=== PATIENT | male | born 1995 | race Caucasian/White ===

== ENCOUNTER 2023-03-24 16:00 | Emergency (ER) | payer SELFPAY ==
[~2023-03-24] VITALS: Ht 165.1 cm; Wt 62.6 kg
[2023-03-24 16:13] VITALS: BP 149/86
--- NOTE | 2023-03-24 16:22 | NUR ---
patient ambulated to bed 8.
[2023-03-24] MEDS ORDERED: BACITRACIN OINT 500 UNITS/GM PKT TP ONE (16:40)
[2023-03-24] MEDS ORDERED: LIDOCAINE/EPI 2% 1:100000 20 ML VIAL INJ ONE (16:40)
--- NOTE | 2023-03-24 18:17 | NUR ---
28 Y/O MALE BIB SELF, PT PRESENTS TO ED WITH LOC TO LEFT ARM S/P WORK INJURY THIS AFTERNOON. PT STATES HE WAS AT WORK AND SITTING ON CHAIR, FELL OVER BACKWARDS AND HIT HIS ARM AGAINST METAL DOOR. PT WAS CUT WITH METAL DOOR ON LEFT [facility]. PT WAS SEEN AT URGENT CARE AND REFERRED TO COME TO ER. UNKNOWN LAST TDAP DOSE. 9/10 THROBBING LEFT PROXIMAL FOREARM PAIN AT THIS TIME. PMH: SERAIES MARJ
[2023-03-24] MEDS ORDERED: IBUP-2213 PO (18:26)
[2023-03-24] MEDS ORDERED: BACI-416 TP (18:26)
[2023-03-24 19:00] VITALS: BP 139/80
--- NOTE | 2023-03-24 19:00 | NUR ---
Patient discharged with v/s stable. Written and verbal after care instructions given and explained. Patient alert, oriented and verbalized understanding of instructions. Ambulatory with steady gait. All questions addressed prior to discharge. ID band removed. Patient advised to follow up with PMD. Rx of BACITRACIN ZINC, IBUPROFEN given. Opportunity to ask questions provided and answered.
== END 2023-03-24 19:00 | disposition home or self-care (01) ==
LOC: MEEG 16:00
DX: S41.112A Laceration without foreign body of left upper arm, initial encounter (principal); Z79.899 Other long term (current) drug therapy; W45.8XXA Other foreign body or object entering through skin, initial encounter; Y93.89 Activity, other specified; Y92.89 Other specified places as the place of occurrence of the external cause; Y99.8 Other external cause status
CPT/HCPCS: 12002; 90471; 90715; 99283; J2001